=== PATIENT | male | born 1980 | race Caucasian/White ===

== ENCOUNTER 2022-02-20 22:09 | Emergency (ER) | payer SELFPAY ==
[~2022-02-20] VITALS: Ht 185.5 cm; Wt 86.2 kg
[~2022-02-20 22:09] MED LIST: ACHD5005 PO; AMOX-358 PO; AMOX500C2 PO; AMPH30TA2 PO; ANTI DEPRESSENT; AZIT250T12 PO; BACL10TA PO; BACL20TA PO; CEPH-507 PO; CEPH500T PO; CYCL10TA25 PO; CYCL10TA9 PO; DOXY100T2 PO; GUAI118L10 PO; HYDR-34 PO; HYDR-3817 PO; HYDR-3870 PO; HYDR-757 PO; HYDR1CAP2 PO; HYDR1TAB PO; HYDR1TAB86 PO; HYDR50TA76; IBP600T1 PO; IBUP-1773 PO; IBUP-1780 PO; LISD40CA3 PO; LISD60CA PO; LITH600C; LITH600C PO; LORA10TA7 PO; LTH450TCR PO; METH-732 PO; MIRT-69 PO; MIRT-94 PO; MIRT45TA5; NAPR-1071 PO; NAPR-243 PO; NAPR220T76; NAPR550T PO; NF-ADXR10C PO; ONDA4TAB11 PO; ONDA4TAB11 SL; OXC5T PO; OXYC-109 PO; OXYC-12 PO; OXYC-272; PANT20TA2; PANT40TA2 PO; PENI500T PO; PRD20T PO; PSEU120T17 PO; PSYL1PAC15; QUET300T2 PO; QUET300T3 PO; QUET50TA49 PO; SULF1TAB38 PO; TRM50T PO; VENL150C PO; VENL225T3 PO; VENL37.56
[2022-02-20 22:13] VITALS: BP 134/89
== END 2022-02-20 22:40 | disposition left against medical advice (07) ==
LOC: EDBD → ER 22:16
DX: M25.561 Pain in right knee (principal); F10.129 Alcohol abuse with intoxication, unspecified
CPT/HCPCS: 99283

== ENCOUNTER 2022-03-16 17:12 | Emergency (ER) | payer SELFPAY ==
[~2022-03-16] VITALS: Ht 182 cm; Wt 83.0 kg
[2022-03-16 17:15] VITALS: BP 126/69
--- NOTE | 2022-03-16 17:37 | ED General ---
General Chief Complaint: Detox Stated Complaint: DETOX Nursing Triage Note: ARRIVED VIA AMB TO ROOM 04 ET STATES HE HAS BEEN DRINKING VODKA FOR THE LAST 2 WEEKS AND WANTS TO STOP. STATES HE WAS IN THE [facility] 2 WEEKS AGO AND IS SCHEDULED FOR ATC NEXT WEDNESDAY. Source of Information: Patient Exam Limitations: No Limitations History of Present Illness Date Seen by Provider: Mar 16, 2022 Time Seen by Provider: 17:25 Initial Comments 41-year-old male requesting alcohol detox. He states he just got out of the [facility] unit and the night he got out he went and drank. He has not drank since 9:00 this morning requesting help with his drinking. He does have an outpatient detox follow-up scheduled for next Wednesday. He drinks vodka when he drinks, upwards of a liter a day. No medical concerns at this time Allergies and Home Medications Allergies Coded Allergies: prednisone (Verified Allergy, Unknown, 02/23/22) Patient Home Medication List Home Medication List Reviewed: Yes Pantoprazole Sodium (Protonix) 40 Mg Tablet.dr, 40 MG PO DAILY Prescribed by: GIORGIO PAK on 10/03/21 1135 Review of Systems Review of Systems Constitutional: no symptoms reported EENTM: no symptoms reported Respiratory: no symptoms reported Cardiovascular: no symptoms reported Genitourinary: no symptoms reported Musculoskeletal: no symptoms reported Skin: no symptoms reported Psychiatric/Neurological: No Symptoms Reported Hematologic/Lymphatic: No Symptoms Reported Immunological/Allergic: no symptoms reported Past Ecmwyws-Ywnsxr-Djxrfe Hx Patient Social History Tobacco Use?: Yes Smoking Status: Current Everyday Smoker Substance use?: Yes Substance type: Marijuana Alcohol Use?: Yes Alcohol type: Hard Liquor Alcohol Frequency: Daily Immunizations Up To Date Tetanus Booster (TDap): Unknown Seasonal Allergies Seasonal Allergies: No Past Medical History Surgery/Hospitalization HX: ORTHO SX. PMH: BIPOLAR Surgeries: Yes (LT KNEE AND QUAD, RT SHOULDER, RT KNEE, LT WRIST, JAW RECONSTRUCTION) Orthopedic Respiratory: No Cardiac: Yes Endocarditis Neurological: No Reproductive Disorders: No Gastrointestinal: No Musculoskeletal: Yes Fractures Endocrine: No HEENT: No Cancer: No Psychosocial: Yes ADD/ADHD, Anxiety, Bipolar, Depression Integumentary: No Blood Disorders: No Family Medical History Reviewed Nursing Family Hx Patient reports no known family medical history. No Pertinent Family Hx Physical Exam Vital Signs Vital Signs - First Documented 03/16/22 17:15 Temp 37.3 Pulse 81 Resp 16 B/P (MAP) 126/69 (88) Pulse Ox 96 O2 Delivery Room Air Capillary Refill : Less Than 3 Seconds Height, Weight, BMI Height: 6'1" Weight: 188lbs. 6.4oz. 85.235025bv; 25.00 BMI Method:Estimated General Appearance: No Apparent Distress, WD/WN Eyes: Bilateral Eye Normal Inspection, Bilateral Eye PERRL, Bilateral Eye EOMI, Bilateral Eye Abnormal EOM, Bilateral Eye Abnormal Pupil, Bilateral Eye Conjunctivae Pale, Bilateral Eye Lid Inflammation, Bilateral Eye Photophobia, Bilateral Eye Scleral Icterus, Bilateral Eye Other HEENT: PERRL/EOMI, TMs Normal, Normal ENT Inspection, Pharynx Normal Neck: Normal Inspection, Non Tender, Supple Respiratory: Chest Non Tender, Lungs Clear, Normal Breath Sounds, No Accessory Muscle Use, No Respiratory Distress Cardiovascular: Regular Rate, Rhythm, No Edema, No Gallop, No JVD, No Murmur, Normal Peripheral Pulses Gastrointestinal: Normal Bowel Sounds, No Organomegaly, No Pulsatile Mass, Non Tender, Soft Back: Normal Inspection, No CVA Tenderness, No Vertebral Tenderness Extremity: Normal Capillary Refill, Normal Inspection, Normal Range of Motion, Non Tender, No Calf Tenderness Neurologic/Psychiatric: Alert, Oriented x3, No Motor/Sensory Deficits Skin: Normal Color, Warm/Dry Procedures/Interventions Suture Size: 5-0 Progress/Results/Core Measures Suspected Sepsis SIRS Temperature: Pulse: 81 Respiratory Rate: 16 Blood Pressure 126 /69 Mean: 88 Results/Orders Vital Signs/I&O 03/16/22 17:15 Temp 37.3 Pulse 81 Resp 16 B/P (MAP) 126/69 (88) Pulse Ox 96 O2 Delivery Room Air Capillary Refill : Less Than 3 Seconds Blood Pressure Mean: 88 Departure Communication (Admissions) Patient is hemodynamically stable. Requesting inpatient alcohol detox. He just went through an intensive alcohol detox receiving unit in [place] during the night he was released. I advised him he did not qualify for any inpatient treatment at this time. He has normal vital signs no evidence of withdrawal at this time. No history of delirium tremens or seizure with withdrawal. He requests to leave once I told him there is no medical indication for admission at this time. I did offer to check labs and see if there is a medical indication for admission and he declines and leaves without his discharge instructions. Impression Primary Impression: Alcohol abuse Disposition: HOME, SELF-CARE Condition: Stable Departure-Patient Inst. Referrals: NO,LOCAL PHYSICIAN (PCP/Family) Primary Care Physician Patient Instructions: Alcohol Use Disorder (DC) Add. Discharge Instructions: Keep your detox appointment next week on Wednesday. All discharge instructions reviewed with patient and/or family. Voiced understanding. BELLA NUNEZ DO Mar 16, 2022 17:37
== END 2022-03-16 17:33 | disposition left against medical advice (07) ==
LOC: EDUNIT# 17:12 → ER 17:13
DX: F10.10 Alcohol abuse, uncomplicated (principal); F17.200 Nicotine dependence, unspecified, uncomplicated; Z28.310 Unvaccinated for COVID-19
CPT/HCPCS: 99281

== ENCOUNTER → 2022-08-11 | Outpatient (CLI) | payer OTHER ==
--- NOTE | 2022-08-11 15:33 | Diagnostic Imaging Report ---
PROCEDURE: MRI left joint lower extremity without contrast. TECHNIQUE: Multiplanar, multisequence non contrast-enhanced MRI of the left ankle was accomplished. INDICATION: Ankle pain. COMPARISON: 03/07/2021. FINDINGS: Tendons: Achilles is intact. The peroneus longus longus and brevis tendons are intact. Posterior tibialis, flexor digitorum longus and flexor hallux longus are intact. Mild tenosynovitis of the posterior tibialis is noted. Anterior tibialis, extensor hallux longus and extensor digitorum longus are normal where visualized. Ligaments: The anterior and posterior distal tibiofibular ligaments are intact. Anterior talofibular ligament is not seen and likely chronically torn. The calcaneofibular and posterior talofibular are normal. Medial deltoid ligamentous complex is intact. Bones: There are 2 separate sites of abnormal subchondral bone marrow edema in the medial and lateral aspects of the talar dome. At the medial talar dome, there is some irregularity of the overlying articular cartilage and this is most compatible with a osteochondral injury. However, there are no large subchondral cysts or fluidlike signal to indicate instability at either of the sites of osteochondral injury. No stress fracture within the calcaneus. Nonosseous coalition of the calcaneonavicular joint. Soft tissues: No ankle joint effusion. Sinus tarsi is normal in appearance. Plantar fascia origin is normal. No mass effect on the tarsal tunnel. IMPRESSION: 1. There are 2 separate osteochondral injuries in the medial and lateral aspect of the talar dome. However, there are no MRI features to indicate unstable osteochondral defects. 2. 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 Dictated by: Dictated on workstation # [id number]
== END ==
LOC: RAD 13:15
PROVIDERS: ATTEND Internal Medicine
DX: S93.492A Sprain of other ligament of left ankle, initial encounter (principal); S99.812A Other specified injuries of left ankle, initial encounter; Q66.89 Other specified congenital deformities of feet; X58.XXXA Exposure to other specified factors, initial encounter
CPT/HCPCS: 73721

== ENCOUNTER 2022-11-05 19:06 | Emergency (ER) | payer OTHER ==
[~2022-11-05] VITALS: Ht 185 cm; Wt 97.0 kg
[2022-11-05] MEDS ORDERED: CYCL10TA25 PO (19:42)
[2022-11-05] MEDS ORDERED: KETO10TA PO (19:42)
--- NOTE | 2022-11-05 19:42 | ED Lower Extremity ---
General Chief Complaint: Lower Extremity Stated Complaint: LEG PAIN Nursing Triage Note: PT REPORTS TO ED FOR LEFT LEG QUAD. PAIN. PER PT HE PULLED THE MUSCLE WHEN HE STEPPED UP A DITCH. PT WAS GOING INTO HIS HOUSE. PT HAS BEEN TRYING OTC STUFF AT HOME WITH NO RELIEF. HE DOES NOT WANT NARCOTICS BUT WOULD LIKE SOMETHING TO HELP TAKE THE INFLAMMATION FASTER HE IS LOOKING TO GET A JOB. PT AMB. TO [facility] WITHOUT DIFFICULTY. Source: patient Exam Limitations: no limitations History of Present Illness Date Seen by Provider: Nov 05, 2022 Time Seen by Provider: 19:26 Initial Comments 41-year-old male presents to the ED with complaints of muscle strain to bilateral quads. He states that he pulled his right upper quad 2 weeks ago, 4 days later he then pulled his left upper quad. He states that he has been stretching, using ice, Biofreeze, ibuprofen. He reports that the right leg is feeling better, but the left is still having a lot of pain. He is requesting something to help his muscles heal faster because he just got started with a new job, and he does not want to miss work. Patient currently takes lithium, Vyvanse, Seroquel, and mirtazapine. Allergies and Home Medications Allergies Coded Allergies: prednisone (Verified Allergy, Unknown, 02/23/22) Patient Home Medication List Home Medication List Reviewed: Yes Cyclobenzaprine HCl (Cyclobenzaprine HCl) 10 Mg Tablet, 10 MG PO TID Prescribed by: Libby Muhammad on 11/05/221941 Ketorolac Tromethamine (Ketorolac Tromethamine) 10 Mg Tablet, 10 MG PO Q6H PRN for PAIN Prescribed by: Libby Muhammad on 11/05/221941 Pantoprazole Sodium (Protonix) 40 Mg Tablet.dr, 40 MG PO DAILY Prescribed by: GIORGIO PAK on 10/03/21 1135 Review of Systems Constitutional: no symptoms reported Musculoskeletal: muscle pain Past Yuqmkkm-Bsgdeo-Wcrpaq Hx Patient Social History Tobacco Use?: Yes Tobacco type used: Cigarettes Smoking Status: Current Everyday Smoker Use of E-Cig and/or Vaping dev: No Substance use?: No Alcohol Use?: No Pt feels they are or have been: No Immunizations Up To Date Tetanus Booster (TDap): Unknown Seasonal Allergies Seasonal Allergies: No Past Medical History Surgery/Hospitalization HX: ORTHO SX. PMH: BIPOLAR Surgeries: Yes (LT KNEE AND QUAD, RT SHOULDER, RT KNEE, LT WRIST, JAW RECONSTRUCTION) Orthopedic Respiratory: No Cardiac: Yes Endocarditis Neurological: No Reproductive Disorders: No Gastrointestinal: No Musculoskeletal: Yes Fractures Endocrine: No HEENT: No Cancer: No Psychosocial: Yes ADD/ADHD, Anxiety, Bipolar, Depression Integumentary: No Blood Disorders: No Family Medical History Patient reports no known family medical history. No Pertinent Family Hx Physical Exam Vital Signs Vital Signs - First Documented 11/05/22 19:19 Temp 36.7 Pulse 87 Resp 18 B/P (MAP) 129/80 (96) Pulse Ox 98 O2 Delivery Room Air Capillary Refill : Less Than 3 Seconds Height, Weight, BMI Height: 6'1" Weight: 188lbs. 6.4oz. 85.055822gp; 28.00 BMI Method:Estimated General Appearance: WD/WN, no apparent distress Neck: supple, normal inspection Cardiovascular: regular rate, rhythm, no edema, no gallop, no JVD, no murmur Respiratory: lungs clear, normal breath sounds, no respiratory distress, no accessory muscle use Legs: bilateral leg normal inspection, bilateral leg normal range of motion, bilateral leg pain Neurologic/Psychiatric: alert, normal mood/affect Skin: normal color, warm/dry Procedures/Interventions Suture Size: 5-0 Progress/Results/Core Measures Results/Orders My Orders Orders - LIBBY MUHAMMAD APRN Ketorolac Injection (Toradol Injection) (11/05/22 19:45) Orphenadrine Inj (Ed Only) (Norflex Inje (11/05/22 19:45) Vital Signs/I&O 11/05/22 11/05/22 19:19 20:00 Temp 36.7 Pulse 87 80 Resp 18 B/P (MAP) 129/80 (96) 124/76 Pulse Ox 98 O2 Delivery Room Air Blood Pressure Mean: 96 Progress Progress Note : Time: 19:38 Progress Note Patient seen and evaluated, resting comfortably in recliner, no acute distress. Based on exam and symptoms, will treat with Toradol and Norflex. Will discharge with prescription for Toradol and Flexeril. Discharge instructions and return precautions provided. Departure Impression Primary Impression: Muscle strain Disposition: 01 HOME, SELF-CARE Condition: Stable Departure-Patient Inst. Decision time for Depature: 19:39 Referrals: KLEBER FONTAINE MD (PCP/Family) Primary Care Physician Patient Instructions: Muscle Strain (DC) Add. Discharge Instructions: Take Toradol as needed for pain and inflammation. Do not take ibuprofen with this. You may also take Tylenol as needed for pain. Try using heat, this may work better for you. Continue stretching the muscles. Take Flexeril as needed for pain/muscle spasm, it may make you sleepy, so you may only want to take it at night. Follow-up with primary care provider. Return for any new, concerning, or worsening symptoms. All discharge instructions reviewed with patient and/or family. Voiced understanding. Scripts Cyclobenzaprine HCl (Cyclobenzaprine HCl) 10 Mg Tablet 10 MG PO TID, #21 TAB 0 Refills Prov: LIBBY MUHAMMAD APRN 11/05/22 Ketorolac Tromethamine (Ketorolac Tromethamine) 10 Mg Tablet 10 MG PO Q6H PRN for PAIN, #28 TAB 0 Refills Prov: LIBBY MUHAMMAD APRN 11/05/22 LIBBY MUHAMMAD APRN Nov 05, 2022 19:42
[2022-11-05] MEDS ORDERED: KETOROLAC 30 MG/ML VIAL IM ONE (19:45)
[2022-11-05] MEDS ORDERED: ORPHENADRINE 60 MG/2 ML (NORFLEX) AMP (ED ONLY) IM ONE (19:45)
[2022-11-05 20:00] VITALS: BP 124/76
== END 2022-11-05 19:59 | disposition home or self-care (01) ==
LOC: EDUNIT# 19:06 → ER 19:09
DX: S76.111A Strain of right quadriceps muscle, fascia and tendon, initial encounter (principal); S76.112A Strain of left quadriceps muscle, fascia and tendon, initial encounter; F17.210 Nicotine dependence, cigarettes, uncomplicated; Z79.899 Other long term (current) drug therapy; Z28.310 Unvaccinated for COVID-19; X50.0XXA Overexertion from strenuous movement or load, initial encounter
CPT/HCPCS: 99284

== ENCOUNTER 2022-12-05 19:03 | Emergency (ER) | payer OTHER ==
[~2022-12-05] VITALS: Ht 185.4 cm; Wt 99.8 kg
[~2022-12-05 19:03] MED LIST changes: +KETO10TA PO
[2022-12-05] MEDS ORDERED: LITH150C PO (19:24)
[2022-12-05] MEDS ORDERED: QUET25TA PO (19:24)
[2022-12-05] MEDS ORDERED: MIRT-47 PO (19:24)
[2022-12-05] MEDS ORDERED: NF-VYVAN20 PO (19:24)
--- NOTE | 2022-12-05 19:35 | ED General ---
General Chief Complaint: Bite-Animal/Human/Insect Stated Complaint: TICK BITE FEVER/SOA/BODYACHES Nursing Triage Note: C/O TICK BITE 1 MONTH AGO TO RIGHT EAR. C/O BILATERAL EAR PAIN, TINGLING IN HANDS, BILATERAL KNEE SWELLING, FEVER X4 DAYS, CHEST DISCOMFORT X2 DAYS. Source of Information: Patient Exam Limitations: No Limitations History of Present Illness Date Seen by Provider: December 05, 2022 Time Seen by Provider: 19:33 Initial Comments Patient is a 41-year-old male who presents to ED for flulike symptoms. Patient states 1 month ago he removed to Ticks from his head and right axilla. Patient states 2 weeks ago he pulled a tick from his right outer ear. Started developing flulike symptoms after he removed the tick of body aches, chills, weakness, numbness and tingling into the joints with joint pain. Denies any joint swelling or redness. Reports some intermittent chest pain short of breath nausea diarrhea. States his back feels stiff his neck feels stiff. Denies any visual changes, known cardiac history, recent travels or surgeries. He states he was at the [employer] at the time when he got bit. States he just has decreased energy levels. Denies of any known cardiac history, history of COPD or asthma. Normal urination. Eating and drinking at home but just decreased appetite. Reports some crusting to the right outer ear. Denies of any hearing loss, ear ringing, focal neural deficits, seizures. Patient states he has felt feverish over the past 4 days. Patient denies of any rash Allergies and Home Medications Allergies Coded Allergies: prednisone (Verified Allergy, Unknown, 02/23/22) Patient Home Medication List Home Medication List Reviewed: Yes Doxycycline Monohydrate (Doxycycline Monohydrate) 100 Mg Tablet, 100 MG PO BID Prescribed by: PREET HELLER on 12/05/222036 Lisdexamfetamine Dimesylate (Vyvanse) 20 Mg Capsule, Unknown Dose PO, (Reported) Entered as Reported by: HAILEY CLEVELAND on 12/05/221923 Last Action: New Order [place] Carbonate ([place] Carbonate) 150 Mg Capsule, Unknown Dose PO, (Reported) Entered as Reported by: HAILEY CLEVELAND on 12/05/221923 Last Action: New Order Mirtazapine (Mirtazapine) 15 Mg Tab.rapdis, Unknown Dose PO, (Reported) Entered as Reported by: HAILEY CLEVELAND on 12/05/221923 Last Action: New Order Quetiapine Fumarate (Seroquel) 25 Mg Tablet, Unknown Dose PO, (Reported) Entered as Reported by: HAILEY CLEVELAND on 12/05/221923 Last Action: New Order Discontinued Medications Cyclobenzaprine HCl (Cyclobenzaprine HCl) 10 Mg Tablet, 10 MG PO TID Discontinued Reason: No Longer Taking Prescribed by: Libby Muhammad on 11/05/221941 Last Action: Discontinued Ketorolac Tromethamine (Ketorolac Tromethamine) 10 Mg Tablet, 10 MG PO Q6H PRN for PAIN Discontinued Reason: No Longer Taking Prescribed by: Libby Muhammad on 11/05/221941 Last Action: Discontinued Pantoprazole Sodium (Protonix) 40 Mg Tablet.dr, 40 MG PO DAILY Discontinued Reason: No Longer Taking Prescribed by: GIORGIO PAK on 10/03/21 1135 Last Action: Discontinued Review of Systems Review of Systems Constitutional: No chills, No diaphoresis, No fever, No malaise, No weakness EENTM: No blurred vision, No double vision Gastrointestinal: No abdominal pain; diarrhea; No nausea, No vomiting Genitourinary: No decreased output, No discharge, No dysuria, No frequency Musculoskeletal: back pain, joint pain, muscle pain, muscle stiffness Skin: No change in color, No change in hair/nails Past Huyllnu-Fmikqz-Znfddf Hx Patient Social History Tobacco Use?: Yes Substance use?: Yes Substance type: Marijuana Alcohol Use?: Yes Alcohol Frequency: Rarely Pt feels they are or have been: No Immunizations Up To Date Tetanus Booster (TDap): Unknown First/Initial COVID19 Vaccinat: NONE Seasonal Allergies Seasonal Allergies: No Past Medical History Surgery/Hospitalization HX: MULTIPLE ORTHO SX. PMH: BIPOLAR, ADHD Surgeries: Yes (LT KNEE AND QUAD, RT SHOULDER, RT KNEE, LT WRIST, JAW RECONSTRUCTION) Orthopedic Respiratory: No Cardiac: Yes Endocarditis Neurological: No Reproductive Disorders: No Gastrointestinal: No Musculoskeletal: Yes Fractures Endocrine: No HEENT: No Cancer: No Psychosocial: Yes ADD/ADHD, Anxiety, Bipolar, Depression Integumentary: No Blood Disorders: No Family Medical History Patient reports no known family medical history. No Pertinent Family Hx Physical Exam Vital Signs Vital Signs - First Documented 12/05/22 19:16 Temp 36.4 Pulse 88 Resp 14 B/P (MAP) 123/84 (97) Pulse Ox 99 O2 Delivery Room Air Capillary Refill : Less Than 3 Seconds Height, Weight, BMI Height: 6'1" Weight: 188lbs. 6.4oz. 85.863047au; 29.00 BMI Method:Estimated General Appearance: No Apparent Distress, WD/WN Eyes: Bilateral Eye Normal Inspection, Bilateral Eye PERRL, Bilateral Eye EOMI HEENT: PERRL/EOMI, TMs Normal, Pharynx Normal, Other (Right outer ear with mild erythema and crusting. No function of mass.) Neck: Full Range of Motion, Normal Inspection, Non Tender, Supple Respiratory: Chest Non Tender, Lungs Clear, Normal Breath Sounds, No Accessory Muscle Use, No Respiratory Distress Cardiovascular: Regular Rate, Rhythm, No Edema, No Gallop, No JVD Gastrointestinal: Normal Bowel Sounds, No Organomegaly, No Pulsatile Mass, Non Tender, Soft Extremity: Normal Capillary Refill, Normal Inspection, Normal Range of Motion, Non Tender Neurologic/Psychiatric: Alert, Oriented x3, No Motor/Sensory Deficits, Normal Mood/Affect, personal counselor II-XII Norm as Tested Skin: Other (No evidence of rash. Crusting noted to right inner tragus.) Procedures/Interventions Suture Size: 5-0 Progress/Results/Core Measures Suspected Sepsis SIRS Temperature: Pulse: 88 Respiratory Rate: 14 Laboratory Tests 12/05/22 20:08: White Blood Count 10.1 Blood Pressure 123 /84 Mean: 97 Laboratory Tests 12/05/22 19:50: Creatinine 0.82, Total Bilirubin 0.5 12/05/22 20:08: Platelet Count 419H Results/Orders Lab Results Laboratory Tests Test 12/05/22 19:50 12/05/22 19:56 12/05/22 20:08 Range/Units Sodium Level 137 135-145 MMOL/L Potassium Level 3.6 3.6-5.0 MMOL/L Chloride Level 106 98-107 MMOL/L Carbon Dioxide Level 20 L 21-32 MMOL/L Anion Gap 11 5-14 MMOL/L Blood Urea Nitrogen 12 7-18 MG/DL Creatinine 0.82 0.60-1.30 MG/DL Estimat Glomerular Filtration Rate 112 BUN/Creatinine Ratio 15 Glucose Level 94 70-105 MG/DL Calcium Level 9.8 8.5-10.1 MG/DL Corrected Calcium 9.4 8.5-10.1 MG/DL Total Bilirubin 0.5 0.1-1.0 MG/DL Aspartate Amino Transf (AST/SGOT) 22 5-34 U/L Alanine Aminotransferase (ALT/SGPT) 18 0-55 U/L Alkaline Phosphatase 98 40-136 U/L Troponin I < 0.028 <0.028 NG/ML C-Reactive Protein High Sensitivity 0.14 0.00-0.50 MG/DL Total Protein 7.3 6.4-8.2 GM/DL Albumin 4.5 3.2-4.5 GM/DL Influenza Type A (RT-PCR) Not Detected Not Detecte Influenza Type B (RT-PCR) Not Detected Not Detecte SARS-CoV-2 RNA (RT-PCR) Not Detected Not Detecte White Blood Count 10.1 4.3-11.0 10^3/uL Red Blood Count 4.51 4.30-5.52 10^6/uL Hemoglobin 14.0 13.3-17.7 g/dL Hematocrit 42 40-54 % Mean Corpuscular Volume 94 80-99 fL Mean Corpuscular Hemoglobin 31 25-34 pg Mean Corpuscular Hemoglobin Concent 33 32-36 g/dL Red Cell Distribution Width 13.4 10.0-14.5 % Platelet Count 419 H 130-400 10^3/uL Mean Platelet Volume 10.2 9.0-12.2 fL Immature Granulocyte % (Auto) 0 % Neutrophils (%) (Auto) 59 42-75 % Lymphocytes (%) (Auto) 33 12-44 % Monocytes (%) (Auto) 6 0-12 % Eosinophils (%) (Auto) 1 0-10 % Basophils (%) (Auto) 0 0-10 % Neutrophils # (Auto) 6.0 1.8-7.8 10^3/uL Lymphocytes # (Auto) 3.3 1.0-4.0 10^3/uL Monocytes # (Auto) 0.7 0.0-1.0 10^3/uL Eosinophils # (Auto) 0.1 0.0-0.3 10^3/uL Basophils # (Auto) 0.0 0.0-0.1 10^3/uL Immature Granulocyte # (Auto) 0.0 0.0-0.1 10^3/uL Erythrocyte Sedimentation Rate 9 0-15 MM/HR My Orders Orders - ARTURO RANDOLPH Cbc With Automated Diff (12/05/22 19:29) Comprehensive Metabolic Panel (12/05/22 19:29) Hs C Reactive Protein (12/05/22:) Erythrocyte Sedimentation Rate (12/05/22:29) Tick Panel With Lyme Eia (12/05/22) Troponin I Nona (12/05/22:29) Ekg Tracing (12/05/22:) Chest 1 View, Ap/Pa Only (12/05/22:) Covid 19 Inhouse Test (12/05/22 19:35) Influenza A And B By Pcr (12/05/22 19:35) Doxycycline Hyclate Tablet (Vibramycin T (12/05/22 20:34) Vital Signs/I&O 12/05/22 12/05/22 19:16 20:40 Temp 36.4 36.7 Pulse 88 68 Resp 14 16 B/P (MAP) 123/84 (97) 127/81 Pulse Ox 99 99 O2 Delivery Room Air Room Air Capillary Refill : Less Than 3 Seconds Blood Pressure Mean: 97 Departure Communication (PCP) Reviewed previous ER visits, H&P, lab testing. Patient concern for tick bite 1 month ago. He states he pulled the ticks off. Unlikely attached for long period of time as he states they were moving. Patient states he did pull a tick to the right outer ear two weeks ago. Unknown length that the tick was on his ear. He does have some crusting to this area. No evidence of a bull's-eye type rash or rash to the upper extremities. Patient with multiple complaints joint pain, fatigue, weakness, chest pain, cough, abdominal pain, fever. Patient is afebrile on arrival. Denies taking any anti-inflammatories before arrival. Stable vital signs. Does have some cellulitis to the right outer ear. Due to current complaint tick panel, generalized lab work, troponin and EKG. No known cardiac history. Heart score of 1. Low cardiac risk factors. EKG showed normal sinus rhythm with incomplete right bundle branch block. 85 bpm, QRS duration 106 MS, QTc 413 MS. Normal troponin. He was not tachycardic, hypoxic. Denies recent travels, leg pain, or surgeries. negative risk factors for PE. Chest x-ray negative for pneumonia, pneumothorax. Due to flulike symptoms COVID influenza was ordered which were unremarkable. CBC, CMP, ESR and CRP grossly unremarkable. No red flag findings noted on lab work. Due to the cellulitis to the right outer ear will discharge with doxycycline. This will cover tickborne illness as well. Tick panel with Lyme disease is currently pending. Recommend follow-up your PCP in 2 to 3 days for reevaluation. Do not necessarily think patient needs inpatient at this time. Unclear if this is secondary to a tickborne illness, viral. Associated mild cellulits left outer ear. Discuss neosporin twice a day for 14 days or until rash is gone. Denies history of autoimmune disease. No evidence of redness or swelling of the joints. Moving all extremities without difficulties. Continue with anti-inflammatories at home. Follow-up with PCP in 2 to 3 days for reevaluation. Return precautions were discussed. Impression Primary Impression: Tick bite Disposition: HOME, SELF-CARE Condition: Stable Departure-Patient Inst. Decision time for Depature: 20:35 Referrals: [facility] (PCP/Family) Primary Care Physician Patient Instructions: Cellulitis (Skin Infection), Adult (DC) Add. Discharge Instructions: Recommend follow-up with your PCP in 2 to 3 days for reevaluation. If any worsening symptoms return back to ED. Tylenol or ibuprofen for pain All discharge instructions reviewed with patient and/or family. Voiced understanding. Scripts Doxycycline Monohydrate (Doxycycline Monohydrate) 100 Mg Tablet 100 MG PO BID for 10 Days, #20 TAB Prov: ARTURO RANDOLPH 12/05/22 ARTURO RANDOLPH December 05, 2022 19:35
[2022-12-05 20:08] LABS: ALBUMIN 4.5 GM/DL (3.2-4.5); CHLORIDE 106 MMOL/L (98-107); POTASSIUM 3.6 MMOL/L (3.6-5.0); SODIUM 137 MMOL/L (135-145)
[2022-12-05 20:09] LABS: CALCIUM 9.8 MG/DL (8.5-10.1)
[2022-12-05 20:10] LABS: GLUCOSE 94 MG/DL (70-105); TOTAL PROTEIN 7.3 GM/DL (6.4-8.2)
[2022-12-05 20:11] LABS: CARBON DIOXIDE 20 MMOL/L (21-32)
[2022-12-05 20:12] LABS: BILIRUBIN,TOTAL 0.5 MG/DL (0.1-1.0)
[2022-12-05 20:13] LABS: BASOPHILS % (AUTO) 0 % (0-10); EOSINOPHILS # (AUTO) 0.1 10^3/uL (0.0-0.3); EOSINOPHILS % (AUTO) 1 % (0-10); HEMATOCRIT 42 % (40-54); LYMPHOCYTES # (AUTO) 3.3 10^3/uL (1.0-4.0); LYMPHOCYTES % (AUTO) 33 % (12-44); MEAN CORPUSCULAR HEMOGLOBIN 31 pg (25-34); MEAN CORPUSCULAR HGB CONC 33 g/dL (32-36); MEAN CORPUSCULAR VOLUME 94 fL (80-99); MEAN PLATELET VOLUME 10.2 fL (9.0-12.2); MONOCYTES # (AUTO) 0.7 10^3/uL (0.0-1.0); MONOCYTES % (AUTO) 6 % (0-12); NEUTROPHILS % (AUTO) 59 % (42-75); PLATELET COUNT 419 10^3/uL (130-400); WHITE BLOOD COUNT 10.1 10^3/uL (4.3-11.0)
[2022-12-05 20:14] LABS: ALKALINE PHOSPHATASE 98 U/L (40-136); CREATININE SERUM 0.82 MG/DL (0.60-1.30); GFR ESTIMATED 112
[2022-12-05 20:15] LABS: BUN/CREATININE RATIO 15
[2022-12-05 20:17] LABS: ALANINE AMINOTRANSFERASE 18 U/L (0-55)
--- NOTE | 2022-12-05 20:23 | Diagnostic Imaging Report ---
INDICATION: SOB COMPARISON: 07/29/2021. FINDINGS: Single frontal view of the chest demonstrates normal heart size and pulmonary vascularity. The lungs are well aerated and clear. No large pleural effusion or pneumothorax is seen. The visualized osseous structures show no acute abnormality. IMPRESSION: No acute cardiopulmonary process. Dictated by: Dictated on workstation # [id number]
[2022-12-05] MEDS ORDERED: DOXYCYCLINE 100 MG (VIBRAMYCIN) TABLET PO STA (20:34)
[2022-12-05] MEDS ORDERED: DOXY100T31 PO (20:37)
[2022-12-05 20:40] VITALS: BP 127/81
[2022-12-05 20:54] LABS: ERYTHROCYTE SEDIMENTATION RATE 9 MM/HR (0-15)
== END 2022-12-05 20:41 | disposition home or self-care (01) ==
LOC: EDUNIT# 19:03 → ER 19:06
DX: S00.461A Insect bite (nonvenomous) of right ear, initial encounter (principal); H60.11 Cellulitis of right external ear; I45.19 Other right bundle-branch block; F17.200 Nicotine dependence, unspecified, uncomplicated; Z20.822 Contact with and (suspected) exposure to COVID-19; Z28.310 Unvaccinated for COVID-19; W57.XXXA Bitten or stung by nonvenomous insect and other nonvenomous arthropods, initial encounter
CPT/HCPCS: 36415; 71045; 80053; 84484; 85025; 85652; 86141; 86618; 86666; 86668; 86757; 87636; 93005

== ENCOUNTER 2023-04-05 19:11 | Emergency (ER) | payer SELFPAY ==
[~2023-04-05] VITALS: Ht 185.5 cm; Wt 82.6 kg
[~2023-04-05 19:11] MED LIST changes: +DOXY100T31 PO; +LITH150C PO; +MIRT-47 PO; +NF-VYVAN20 PO; +QUET25TA PO
--- NOTE | 2023-04-05 19:25 | ED Lower Extremity ---
General Chief Complaint: Lower Extremity Stated Complaint: LT KNEE INJ Source: patient Exam Limitations: no limitations History of Present Illness Date Seen by Provider: Apr 05, 2023 Time Seen by Provider: 19:23 Initial Comments Patient is a 42-year-old male who presents ED with left knee injury. This occurred 1 hour ago. Patient was playing catch with his daughter stepped in a pothole twisted his left knee outwards. Patient felt a pop. Patient has had 2 MCL repairs, ACL repair and quadricep repair of his left knee. History of previous injuries in the past. Reports large area of swelling. Denies of any distal numbness and tingling. Denies taking anything for pain. Patient is able to stand and bear weight but difficult. Patient denies of any calf pain, ankle pain. Allergies and Home Medications Allergies Coded Allergies: prednisone (Verified Allergy, Unknown, 02/23/22) Patient Home Medication List Home Medication List Reviewed: Yes Doxycycline Monohydrate (Doxycycline Monohydrate) 100 Mg Tablet, 100 MG PO BID Prescribed by: PREET HELLER on 12/05/222036 Lisdexamfetamine Dimesylate (Vyvanse) 20 Mg Capsule, Unknown Dose PO, (Reported) Entered as Reported by: HAILEY CLEVELAND on 12/05/221923 Wilkinson Carbonate (Wilkinson Carbonate) 150 Mg Capsule, Unknown Dose PO, (Reported) Entered as Reported by: HAILEY CLEVELAND on 12/05/221923 Mirtazapine (Mirtazapine) 15 Mg Tab.rapdis, Unknown Dose PO, (Reported) Entered as Reported by: HAILEY CLEVELAND on 12/05/221923 Naproxen (Naproxen) 500 Mg Tablet, 500 MG PO Q12H Prescribed by: PREET HELLER on 04/05/231953 Quetiapine Fumarate (Seroquel) 25 Mg Tablet, Unknown Dose PO, (Reported) Entered as Reported by: HAILEY CLEVELAND on 12/05/221923 Review of Systems Constitutional: No chills, No diaphoresis EENTM: No hearing loss, No double vision Respiratory: No cough, No dyspnea on exertion Cardiovascular: No chest pain Gastrointestinal: No abdominal pain, No diarrhea, No nausea, No vomiting Genitourinary: No decreased output, No discharge Musculoskeletal: joint pain, joint swelling, muscle pain Skin: No change in color, No change in hair/nails All Other Systems Reviewed Negative Unless Noted: Yes Past Sbxduip-Vxnfwb-Ufzihz Hx Immunizations Up To Date Tetanus Booster (TDap): Unknown First/Initial COVID19 Vaccinat: NONE Seasonal Allergies Seasonal Allergies: No Past Medical History Surgery/Hospitalization HX: MULTIPLE ORTHO SX. PMH: BIPOLAR, ADHD Surgeries: Yes (LT KNEE AND QUAD, RT SHOULDER, RT KNEE, LT WRIST, JAW RECONSTRUCTION) Orthopedic Respiratory: No Cardiac: Yes Endocarditis Neurological: No Reproductive Disorders: No Gastrointestinal: No Musculoskeletal: Yes Fractures Endocrine: No HEENT: No Cancer: No Psychosocial: Yes ADD/ADHD, Anxiety, Bipolar, Depression Integumentary: No Blood Disorders: No Family Medical History Patient reports no known family medical history. No Pertinent Family Hx Physical Exam Vital Signs Vital Signs - First Documented 04/05/23 19:17 Temp 36.2 Pulse 74 Resp 16 B/P (MAP) 136/74 (94) Pulse Ox 98 O2 Delivery Room Air Capillary Refill : Height, Weight, BMI Height: 6'1" Weight: 188lbs. 6.4oz. [id number]; 29.00 BMI Method:Estimated General Appearance: WD/WN, no apparent distress HEENT: PERRL/EOMI, normal ENT inspection, TMs normal, pharynx normal Neck: non-tender, full range of motion, supple Cardiovascular: regular rate, rhythm, no edema, no gallop, no JVD Respiratory: chest non-tender, lungs clear, normal breath sounds, no respiratory distress, no accessory muscle use Gastrointestinal: normal bowel sounds, non tender, soft, no organomegaly Back: normal inspection, no CVA tenderness Knees: left knee joint effusion, left knee pain, left knee soft tissue tenderness, left knee swelling, left knee other (Flexion to 70 degrees with full extension. 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, no motor/sensory deficits, alert, normal mood/affect, oriented x 3 Skin: normal color, warm/dry Procedures/Interventions Suture Size: 5-0 Progress/Results/Core Measures Results/Orders My Orders Orders - ARTURO RANDOLPH Knee, Left, 3 Views (04/05/23 19:22) Hydrocodone/Apap 5/325 Tablet (Hydrocod (04/05/23 19:30) Medications Given in ED Current Medications Medications Dose Ordered Sig/Tiago Route Start Time Stop Time Status Last Admin Dose Admin Acetaminophen/ Hydrocodone Bitart 1 ea ONCE ONCE PO 04/05/23 19:30 04/05/23 19:31 DC 04/05/23 20:00 1 EA Vital Signs/I&O 04/05/23 19:17 Temp 36.2 Pulse 74 Resp 16 B/P (MAP) 136/74 (94) Pulse Ox 98 O2 Delivery Room Air Departure Communication (PCP) Differential diagnosis, left knee fracture, left knee sprain, ligament injury. Patient with injury to left knee. History of previous MCL, ACL and quadricep tendon injury with repari. Patient was planned with his daughter when his foot got caught in a hole and felt immediate pop. Pain with movement. Notable swelling. On exam tenderness throughout the anterior part of the knee. Flexion seems to be limited. Neurovascular intact. No calf tenderness. Achilles tendon is intact. Patella tracking noted. X-ray was obtained. Patient received a dose of pain medication. X-ray did not show any acute fracture or dislocation. Moderate joint effusion. I am concerned for ligament or meniscus injury. Patient was placed in knee immobilizer. Crutches was provided. Recommend a knee brace for support. Recommend follow-up with orthopedic for further evaluation. Recommend MRI for further evaluation. Ice and elevate. Return precaution were discussed. Will discharge with pain medication. Limited activities. Impression Primary Impression: Knee pain Disposition: HOME, SELF-CARE Condition: Stable Departure-Patient Inst. Decision time for Depature: 19:30 Referrals: [facility] (PCP/Family) Primary Care Physician KATHLEEN LEDEZMA MD Patient Instructions: Knee Pain ED Add. Discharge Instructions: Recommend orthopedic outpatient follow-up. Knee brace for support. All discharge instructions reviewed with patient and/or family. Voiced understanding. Scripts Naproxen (Naproxen) 500 Mg Tablet 500 MG PO Q12H for 10 Days, #20 TAB Prov: ARTURO RANDOLPH 04/05/23 ARTURO RANDOLPH Apr 05, 2023 19:25
[2023-04-05] MEDS ORDERED: HYDROcodone/ACETAMINOPHEN 5 MG/325 MG TABLET PO ONE (19:30)
--- NOTE | 2023-04-05 19:45 | Diagnostic Imaging Report ---
CLINICAL HISTORY: Left knee pain. Fall. COMPARISON: 09/05/2016. TECHNIQUE: Three views of the left knee. FINDINGS: There is no acute fracture or dislocation of the left knee. Alignment is anatomic. The imaged joint spaces are preserved. Moderate left knee joint effusion. IMPRESSION: 1. No acute fracture or dislocation in the left knee. 2. Moderate left knee joint effusion. Dictated by: Dictated on workstation # [id number]
[2023-04-05] MEDS ORDERED: NAPR-915 PO (19:54)
[2023-04-05 20:05] VITALS: BP 127/78
== END 2023-04-05 20:05 | disposition home or self-care (01) ==
LOC: EDUNIT# 19:11 → ER 19:13
DX: M25.462 Effusion, left knee (principal); Z28.310 Unvaccinated for COVID-19; X50.1XXA Overexertion from prolonged static or awkward postures, initial encounter
CPT/HCPCS: 73562